=== PATIENT | female | born 1955 | race Caucasian/White ===

== ENCOUNTER 2017-01-06 14:20 | Day surgery (SDC) | payer MEDICARE, OTHER ==
[~2017-01-06] VITALS: Ht 162.6 cm; Wt 73.8 kg
[~2017-01-06 14:20] MED LIST: CLON-379 PO; HYDR25TA6 PO; OXYB5TAB7 PO; SAME MEDS
[2017-01-06 15:10] VITALS: Ht 162.6 cm; Wt 73.8 kg
[2017-01-06] MEDS ORDERED: NORCO (15:19)
[2017-01-06] MEDS ORDERED: [UNRECOGNIZED DRUG - OTHER] (15:19)
[2017-01-06] MEDS ORDERED: RISPERDAL (15:19)
[2017-01-06] MEDS ORDERED: SOMA (15:19)
[2017-01-06] MEDS ORDERED: XANAX (15:19)
[2017-01-06] MEDS ORDERED: OMEPRAZOLE (15:19)
[2017-01-06] MEDS ORDERED: MIDAZOLAM 1 MG/ML 2 ML INJ ONE ×2 (15:29→16:31)
[2017-01-06] MEDS ORDERED: LIDOCAINE 2% (SDV) 5 ML INJ ONE (15:29)
[2017-01-06] MEDS ORDERED: PROPOFOL 20 ML ONE ×4 (15:29→16:30)
[2017-01-06 15:42] VITALS: BP 147/85; PULSE 82; RESP 20
[2017-01-06] MEDS ORDERED: FENTAnyl 50 MCG/ML VIAL ONE (16:31)
[2017-01-06 17:29] VITALS: BP 159/71; PULSE 73; RESP 12
--- NOTE | 2017-01-06 17:58 | GILP ---
DATE OF PROCEDURE: NAME OF PROCEDURES: 1. Colonoscopy and polypectomy. 2. Clipping of the polypectomy site. INDICATION FOR THE PROCEDURE: Ms. Kamar De Jesus is a 61-year-old female patient who was scheduled for [facility] colonoscopy. The procedure and possible complications were well explained to the patient. She understood and con sented to the procedure. DESCRIPTION OF PROCEDURE: Under the influence of anesthesia, the colonoscope was carefully introduc ed in the rectum. Under direct vision, it was advanced all the way to the cecum. FINDINGS: The patient had multiple colon polyps. There were multiple large sigmoid colon polyps an d 4 of the large polyps were removed using the snare and electrocautery. Clipping of the polypectom y sites were done because the stalks were very thick. The patient also had other small polyps and t hey were not removed at this time. The patient was noted to have internal hemorrhoids. The patient tolerated the procedure very well and there was no complication from the procedure. At the end of the procedure, she was awake with stable vital signs and she was discharged home to the are of her family. IMPRESSION: 1. Colonoscopy all the way to the cecum. 2. Multiple polyps. 3. Multiple large sigmoid colon polyps that were removed using the snare and electrocautery. 4. Clipping of 3 of the polypectomy site was done because of the large thick stalks. 5. Internal hemorrhoids. PLAN: 1. Await histopathology report. 2. The patient will need repeat colonoscopy and removal of the remaining of the polyps in 6 months. Dictated By: SYDNEY DE LEON/FAITH Conf#: [id number] DID#: [id number] CC: SYDNEY VANN MD;*EndCC*
== END 2017-01-07 08:30 | disposition home or self-care (01) ==
LOC: GIL 14:20
PROVIDERS: ATTEND Internal Medicine Gastroenterology
DX: Z12.11 Encounter for screening for malignant neoplasm of colon (principal); D12.5 Benign neoplasm of sigmoid colon; K64.8 Other hemorrhoids; I10 Essential (primary) hypertension
CPT/HCPCS: 45385; 88305; J2250; J3010

== ENCOUNTER 2018-02-09 12:08 | Inpatient (IN) | END 2018-02-12 18:50 | DRG 455 ==

== ENCOUNTER 2018-02-12 18:45 | Inpatient (IN) | END 2018-02-25 11:45 | disposition home health service (06) | DRG 945 ==